=== PATIENT | female | born 1980 | race Caucasian/White ===

== ENCOUNTER → 2017-12-24 | Outpatient (CLI) | payer OTHER ==
[~2017-12-24] MED LIST: CLONIDINE PO; CYMBALTA60 MG PO; HYDROCODON-ACE1 EACH; PRENATAL PO; SUBOXONE 2 MG-1 EACH SL; UNISOM50 MG PO; VICODIN; XANAX 0.25 MG0.25 MG PO; XANAX 0.5 MG0.5 M1
== END ==
LOC: M.LAB 10:30 → M.CT 10:36
DX: H53.8 Other visual disturbances (principal); R51 Headache; R42 Dizziness and giddiness